=== PATIENT | male | born 1935 | race American Indian/Alaskan Native ===

== ENCOUNTER 2020-07-13 16:48 | Emergency (ER) | payer MEDICARE ==
--- NOTE | 2020-07-13 17:35 | Event Note ---
ED Screening Note Date of service: 07/13/20 Time: 17:33 ED Screening Note: 84-year-old -[place] male presents to the emergency room for intermittent elevated blood pressure and dizziness. Patient has a history of diabetes and hypertension. Does not check his blood sugar. Patient is cu rrently on Metformin 500 mg 2 tablets by mouth every morning and 1 tablet every evening he is on glipizide 5 mg daily and lisinopril hydrochlorothiazide 20/12.5. Dr. Armas This initial assessment/diagnostic orders/clinical plan/treatment(s) is/are subject to change based on patients health status, clinical progression and re- assessment by fellow clinical providers in the ED. Further treatment and workup at subsequent clinical providers discretion. Patient/guardian urged not to elope from the ED as their condition may be serious if not clinically assessed and managed. Initial orders include:
[2020-07-13 17:56] LABS: Basophils # (Auto) 0.1 K/mm3 (0.0-0.1); Basophils % (Auto) 0.7 % (0.0-1.8); Eosinophils # (Auto) 0.1 K/mm3 (0.0-0.4); Eosinophils % (Auto) 0.8 % (0.0-4.3); Hematocrit 41.1 % (35.5-45.6); Lymphocytes % (Auto) 39.6 % (13.4-35.0); Mean Corpuscular HGB Conc 34 % (32-34); Mean Corpuscular Volume 88 fl (84-94); Monocytes # (Auto) 0.9 K/mm3 (0.0-0.8); Monocytes % (Auto) 9.4 % (0.0-7.3); Platelet Count 210 K/mm3 (140-440); Red Blood Count 4.65 M/mm3 (3.65-5.03); Red Cell Distribution Width 13.2 % (13.2-15.2)
[2020-07-13 18:17] LABS: Alanine Aminotransferase 20 units/L (7-56); Albumin 4.6 g/dL (3.9-5); BUN/Creatinine Ratio 19; Blood Urea Nitrogen 19 mg/dL (9-20); Calcium 9.7 mg/dL (8.4-10.2); Hemolysis Index 11
--- NOTE | 2020-07-13 19:06 | XRay Report ---
CHEST 2 VIEWS INDICATION / CLINICAL INFORMATION: DIZZINESS. COMPARISON: None available. FINDINGS: SUPPORT DEVICES: None. HEART / MEDIASTINUM: No significant abnormality. LUNGS / PLEURA: No significant pulmonary or pleural abnormality. No pneumothorax. ADDITIONAL FINDINGS: There is elevation of the right hemidiaphragm. IMPRESSION: 1. No acute findings. Signer Name: Ramakrishna Shepherd MD Signed: 07/13/2020 7:01 PM Workstation Name: [id number]
[2020-07-13 19:38] LABS: Bilirubin,Urine NEG (Negative); Blood,Urine NEG (Negative); Color,Urine Yellow (Yellow); Mucus,Urine FEW /HPF; Protein,Urine <15 mg/dL mg/dL (Negative); Urobilinogen,Urine < 2.0 mg/dL (<2.0); WBC,Urine < 1.0 /HPF (0.0-6.0)
[2020-07-13 20:36] VITALS: BP 192/90
[2020-07-13] MEDS ORDERED: amLODIPine 5 MG TAB PO ONE (20:37)
[2020-07-13] MEDS ORDERED: LISINOPRIL 10 MG TAB PO ONE (20:37)
--- NOTE | 2020-07-13 20:44 | Emergency Department Report ---
ED Dizziness HPI - General Chief Complaint: Dizziness Stated Complaint: HBP Time Seen by Provider: 07/13/20 20:01 Source: patient Mode of arrival: Ambulatory Limitations: No Limitations - History of Present Illness Initial Comments: Chief complaint: Dizziness HPI: This is an 84-year-old male with history of hypertension, diabetes mellitus who presents with lightheadedness which began this evening. Patient feels that his diet is causing his blood pressure to be elevated. His 4 months ago. She was a retired RN. She was to cook all the household. Since her dance he has been eating frozen TV dinners. He went to [employer] and realized that his systolic blood pressure was greater than 200. Every once in a while this evening he will have lightheaded spells. For a few moments he felt lightheaded. He denies blurry vision or vertigo. He denies difficulty walking. He just feels a little ill. He is symptom-free at this time. He denies paralysis or weakness in extremities. Current medication is lisinopril 20 mg-hydrochlorothiazide 12.5 mg as well as Metformin and glipizide. Complaint: lightheadedness -: Sudden, This evening Timing: sudden onset Description: lightheadedness History of Same: No History of Trauma: No Severity: mild Improves With: rest Worsens With: nothing Associated Symptoms: denies other symptoms - Related Data Previous Rx's Medication Instructions Recorded Last Taken Type amLODIPine 5 mg PO DAILY #30 tab 07/13/20 Unknown Rx Allergies Allergy/AdvReac Type Severity Reaction Status Date / Time No Known Allergies Allergy Unverified 07/13/20 17:00 ED Review of Systems ROS: Stated complaint: HBP Other details as noted in HPI Comment: All other systems reviewed and negative Constitutional: denies: fever, malaise Respiratory: denies: see HPI, shortness of breath Cardiovascular: denies: chest pain Gastrointestinal: denies: abdominal pain, nausea, vomiting Skin: denies: rash, lesions Neurological: denies: numbness, paresthesias, confusion, abnormal gait ED Past Medical Hx - Past Medical History Previous Medical History?: Yes Hx Hypertension: Yes Hx Diabetes: Yes - Surgical History Past Surgical History?: No - Social History Smoking Status: Never Smoker Substance Use Type: None - Medications Home Medications: Home Medications Medication Instructions Recorded Confirmed Last Taken Type amLODIPine 5 mg PO DAILY #30 tab 07/13/20 Unknown Rx ED Physical Exam - General Limitations: No Limitations General appearance: alert, in no apparent distress, other (Pleasant talkative no acute distress) - Head Head exam: Present: atraumatic, normocephalic - Eye Eye exam: Present: normal appearance - ENT ENT exam: Present: mucous membranes moist - Neck Neck exam: Present: normal inspection, full ROM - Respiratory Respiratory exam: Present: normal lung sounds bilaterally. Absent: respiratory distress, wheezes, rales, stridor - Cardiovascular Cardiovascular Exam: Present: regular rate, normal rhythm, normal heart sounds. Absent: systolic murmur, diastolic murmur, rubs, gallop - GI/Abdominal GI/Abdominal exam: Present: soft, normal bowel sounds. Absent: distended, tenderness, guarding, rebound - Rectal Rectal exam: Present: deferred - Extremities Exam Extremities exam: Present: normal inspection - Neurological Exam Neurological exam: Present: alert, oriented X3 - Psychiatric Psychiatric exam: Present: normal affect, normal mood - Skin Skin exam: Present: warm, dry, intact, normal color. Absent: rash ED Course Vital Signs 07/13/20 07/13/20 17:30 20:34 Temperature 98.1 F Pulse Rate 82 68 Respiratory 18 20 Rate Blood Pressure 183/76 Blood Pressure 192/90 [Left] O2 Sat by Pulse 97 98 Oximetry ED Medical Decision Making - Lab Data Result diagrams: 07/13/20 17:38 07/13/20 17:38 Laboratory Results - last 24 hr 07/13/20 07/13/20 07/13/20 17:38 17:38 17:56 WBC 10.1 RBC 4.65 Hgb 14.0 Hct 41.1 MCV 88 MCH 30 MCHC 34 RDW 13.2 Plt Count 210 Lymph % (Auto) 39.6 H [place] % (Auto) 9.4 H Eos % (Auto) 0.8 Baso % (Auto) 0.7 Lymph # (Auto) 4.0 [place] # (Auto) 0.9 H Eos # (Auto) 0.1 Baso # (Auto) 0.1 Seg Neutrophils % 49.5 Seg Neutrophils # 5.0 Sodium 134 L Potassium 4.1 Chloride 97.0 L Carbon Dioxide 24 Anion Gap 17 BUN 19 Creatinine 1.0 Estimated GFR > 60 BUN/Creatinine Ratio 19 Glucose 194 H POC Glucose 185 H Calcium 9.7 Total Bilirubin 0.30 AST 24 ALT 20 Alkaline Phosphatase 69 Total Protein 8.0 Albumin 4.6 Albumin/Globulin Ratio 1.4 Urine Color Urine Turbidity Urine pH Ur Specific [place] Urine Protein Urine Glucose (UA) Urine Ketones Urine Blood Urine Nitrite Urine Bilirubin Urine Urobilinogen Ur Leukocyte Esterase Urine WBC (Auto) Urine RBC (Auto) Urine Mucus 07/13/20 18:07 WBC RBC Hgb Hct MCV MCH MCHC RDW Plt Count Lymph % (Auto) [place] % (Auto) Eos % (Auto) Baso % (Auto) Lymph # (Auto) [place] # (Auto) Eos # (Auto) Baso # (Auto) Seg Neutrophils % Seg Neutrophils # Sodium Potassium Chloride Carbon Dioxide Anion Gap BUN Creatinine Estimated GFR BUN/Creatinine Ratio Glucose POC Glucose Calcium Total Bilirubin AST ALT Alkaline Phosphatase Total Protein Albumin Albumin/Globulin Ratio Urine Color Yellow Urine Turbidity Clear Urine pH 6.0 Ur Specific [place] 1.015 Urine Protein <15 mg/dl Urine Glucose (UA) 50 Urine Ketones Neg Urine Blood Neg Urine Nitrite Neg Urine Bilirubin Neg Urine Urobilinogen < 2.0 Ur Leukocyte Esterase Neg Urine WBC (Auto) < 1.0 Urine RBC (Auto) 1.0 Urine Mucus Few - EKG Data -: EKG Interpreted by Nd EKG shows normal: sinus rhythm, axis, ST-T waves Rate: normal - EKG Data 07/13/20 20:41 EKG obtained 1743 EKG interpreted by nv Normal sinus rhythm rate 80 bpm normal axis prolonged OR interval normal QTC no ST elevation incomplete left bundle branch block - Radiology Data Radiology results: report reviewed Chest radiograph 2 views: No acute findings according to radiology report - Medical Decision Making Hypertensive urgency, with symptoms of lightheadedness. Patient admits to dietary indiscretion since the of his 4 months ago. He understands the importance of a low-sodium diet. I have encouraged him to avoid processed foods especially products sold in boxes or cans. Patient received lisinopril and amlodipine in the emergency department. No evidence of endorgan damage. He is currently symptom-free. He has had intermittent lightheadedness today without indication of CVA. CBC chemistry within normal limits. EKG chest x-ray unremarkable. Urinalysis without infection, glucosuria noted. I have prescribed amlodipine. Patient understands to follow-up with his doctor within the next 2 weeks for blood pressure check. Critical care attestation.: If time is entered above; I have spent that time in minutes in the direct care of this critically ill patient, excluding procedure time. ED Disposition Clinical Impression: Hypertensive urgency, Lightheadedness Disposition: DC-01 TO HOME OR SELFCARE Is pt being admited?: No Does the pt Need Aspirin: No Condition: Stable Instructions: DASH Eating Plan Additional Instructions: Your blood pressure was elevated today. Your blood pressure readings were 18 3/76 and 192/90. Please start the new blood medication this week. Please see very low sodium diet per recommendations. Please take this paperwork to your next primary care physician appointment. Prescriptions: amLODIPine 5 mg PO DAILY #30 tab Referrals: PRIMARY CARE, [Referring] - 3-5 Days
== END 2020-07-13 21:03 | disposition home or self-care (01) ==
LOC: ED 16:48
DX: R42 Dizziness and giddiness (principal); I16.0 Hypertensive urgency; I10 Essential (primary) hypertension; E11.9 Type 2 diabetes mellitus without complications; Z79.899 Other long term (current) drug therapy
CPT/HCPCS: 36415; 71046; 80053; 81001; 82962; 85025; 93005

== ENCOUNTER 2020-08-09 19:42 | Emergency (ER) | payer MEDICARE ==
[2020-08-09] MEDS ORDERED: cloNIDine 0.2 MG TAB PO ONE (21:29)
--- NOTE | 2020-08-09 22:34 | Emergency Department Report ---
ED General Adult HPI - General Chief complaint: High BP Stated complaint: HBP Time Seen by Provider: 08/09/20 21:21 Source: patient Mode of arrival: Ambulatory Limitations: No Limitations - History of Present Illness Initial comments: Patient is 85-year-old F Montene[place] male with past medical history of hypertension who is here stating that his blood pressure was elevated today. Patient just had his blood pressure regimen changed. He was placed on atenolol in addition to blood pressure medicines he was on for many years. States that his blood pressure still fluctuating going up and down. He is denying any chest pain shortness of breath or focal neurological symptoms. States he had a mild headache and some mild dizziness. - Related Data Previous Rx's Medication Instructions Recorded Last Taken Type amLODIPine 5 mg PO DAILY #30 tab 07/13/20 Unknown Rx Allergies Allergy/AdvReac Type Severity Reaction Status Date / Time No Known Allergies Allergy Unverified 07/13/20 17:00 ED Review of Systems ROS: Stated complaint: HBP Other details as noted in HPI Comment: All other systems reviewed and negative ED Past Medical Hx - Past Medical History Previous Medical History?: Yes Hx Hypertension: Yes Hx Diabetes: Yes - Surgical History Past Surgical History?: No - Social History Smoking Status: Former Smoker Substance Use Type: None - Medications Home Medications: Home Medications Medication Instructions Recorded Confirmed Last Taken Type amLODIPine 5 mg PO DAILY #30 tab 07/13/20 Unknown Rx ED Physical Exam - General Limitations: No Limitations General appearance: alert, in no apparent distress - Head Head exam: Present: atraumatic, normocephalic - Eye Eye exam: Present: normal appearance - ENT ENT exam: Present: mucous membranes moist - Neck Neck exam: Present: normal inspection - Respiratory Respiratory exam: Present: normal lung sounds bilaterally. Absent: respiratory distress, wheezes, rales - Cardiovascular Cardiovascular Exam: Present: regular rate, normal rhythm, normal heart sounds. Absent: systolic murmur, diastolic murmur, rubs, gallop - GI/Abdominal GI/Abdominal exam: Present: soft, normal bowel sounds. Absent: distended, t enderness, guarding, rebound - Rectal Rectal exam: Present: deferred - Extremities Exam Extremities exam: Present: normal inspection - Back Exam Back exam: Present: normal inspection - Neurological Exam Neurological exam: Present: alert, oriented X3 - Psychiatric Psychiatric exam: Present: normal affect, normal mood - Skin Skin exam: Present: warm, dry, intact, normal color. Absent: rash ED Course Vital Signs 08/09/20 08/09/20 08/09/20 20:21 21:20 21:34 Temperature 98.3 F Pulse Rate 56 L 56 L Respiratory 20 Rate Blood Pressure 193/72 182/72 150/64 O2 Sat by Pulse 97 97 Oximetry 08/09/20 21:36 Temperature Pulse Rate Respiratory Rate Blood Pressure 150/64 O2 Sat by Pulse 95 Oximetry ED Medical Decision Making - Medical Decision Making Patient given 0.2 mg of Catapres and his blood pressure decreased to 150 systolic. Patient will follow up with his primary care physician for any additional changes to his blood pressure regimen. Critical care attestation.: If time is entered above; I have spent that time in minutes in the direct care of this critically ill patient, excluding procedure time. ED Disposition Clinical Impression: Hypertensive urgency Disposition: DC-01 TO HOME OR SELFCARE Is pt being admited?: No Does the pt Need Aspirin: No Condition: Stable Instructions: Managing Your Hypertension Referrals: PRIMARY MD GABRIELE [Primary Care Provider] - 3-5 Days Time of Disposition: 22:33
[2020-08-09 23:16] VITALS: BP 167/59
== END 2020-08-09 22:44 | disposition home or self-care (01) ==
LOC: ED 19:42
DX: I16.0 Hypertensive urgency (principal); E11.9 Type 2 diabetes mellitus without complications; Z87.891 Personal history of nicotine dependence; Z79.899 Other long term (current) drug therapy
CPT/HCPCS: 82962; 99282

== ENCOUNTER 2020-08-29 09:02 | Emergency (ER) | payer MEDICARE ==
[2020-08-29 14:49] VITALS: BP 194/74
== END 2020-08-29 14:49 | disposition left against medical advice (07) ==
LOC: ED 09:02
DX: R07.89 Other chest pain (principal); R51.9 Headache, unspecified; I10 Essential (primary) hypertension; Z53.21 Procedure and treatment not carried out due to patient leaving prior to being seen by health care provider

== ENCOUNTER 2020-09-06 09:42 | Emergency (ER) | payer MEDICARE ==
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
[2020-09-06 12:02] LABS: Hematocrit 42.4 % (35.5-45.6); Hemoglobin 14.2 gm/dl (11.8-15.2); Mean Corpuscular HGB Conc 33 % (32-34); Mean Corpuscular Volume 88 fl (84-94); Platelet Count 233 K/mm3 (140-440); Red Blood Count 4.84 M/mm3 (3.65-5.03); Red Cell Distribution Width 13.3 % (13.2-15.2)
--- NOTE | 2020-09-06 12:16 | XRay Report ---
CHEST PA AND LATERAL VIEWS INDICATION: left chest pain. COMPARISON: 07/13/2020 FINDINGS: Support devices: None Heart: Normal and unchanged Lungs/Pleura: No acute pulmonary or pleural findings. IMPRESSION: 1. No active disease and no interval change. Signer Name: Jonathan Lafleur MD Signed: 09/06/2020 12:12 PM Workstation Name: [id number]
[2020-09-06 12:28] LABS: Alanine Aminotransferase 15 units/L (7-56); Albumin 4.3 g/dL (3.9-5); BUN/Creatinine Ratio 20; Blood Urea Nitrogen 18 mg/dL (9-20); Calcium 9.7 mg/dL (8.4-10.2); Hemolysis Index 17
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
[2020-09-06 12:47] LABS: Total Cells Counted 100
[2020-09-06 12:48] LABS: Platelet Estimate Consistent w Auto; RBC Morphology Normal
[2020-09-06 13:18] VITALS: BP 161/72
== END 2020-09-06 13:27 | disposition home or self-care (01) ==
LOC: ED 09:42
DX: R07.81 Pleurodynia (principal); I10 Essential (primary) hypertension; E11.9 Type 2 diabetes mellitus without complications; Z87.891 Personal history of nicotine dependence; Z79.899 Other long term (current) drug therapy
CPT/HCPCS: 36415; 71046; 80053; 84484; 85007; 85025; 93005